=== PATIENT | female | born 1995 | race Caucasian/White ===

== ENCOUNTER 2016-07-22 08:42 | Emergency (ER) | payer OTHER ==
[~2016-07-22] VITALS: Ht 154.9 cm; Wt 86.2 kg
[~2016-07-22 08:42] MED LIST: ALBUTEROL0.09 MG/A2 IH; AMOXICILLIN500 M1 PO; AMOXICILLIN500 MG PO; AUGMENTIN 875875 MG PO; CLARITIN10 MG PO; IBU-8800 MG PO; LEVOTHYROXIN0.025 MG PO; LOMOTIL 0.025 M1 TA1 PO; MOTRIN800 MG PO; NKHM; PRENATAL1 TA1 PO; ROBITUSSIN CF240 ML PO; ZITHROMAX Z PA250 MG PO; ZOFRAN ODT4 MG SL
[2016-07-22 09:02] VITALS: BP 150/78
[2016-07-22] MEDS ORDERED: AUGMENTIN 875-875 MG PO (09:59)
[2016-07-22] MEDS ORDERED: PREDNISONE20 M1 PO (09:59)
== END 2016-07-22 10:07 | disposition home or self-care (01) ==
LOC: ED 08:42
DX: J02.9 Acute pharyngitis, unspecified (principal); F17.200 Nicotine dependence, unspecified, uncomplicated

== ENCOUNTER 2016-09-16 07:27 | Emergency (ER) | payer OTHER ==
[~2016-09-16] VITALS: Ht 154.9 cm; Wt 79.4 kg
[~2016-09-16 07:27] MED LIST changes: +AUGMENTIN 875-875 MG PO; +PREDNISONE20 M1 PO
[2016-09-16 07:43] VITALS: BP 166/74
== END 2016-09-16 07:56 | disposition home or self-care (01) ==
LOC: ED 07:27
DX: M54.5 Low back pain (principal)

== ENCOUNTER 2017-03-21 22:19 | Emergency (ER) | payer OTHER ==
[~2017-03-21] VITALS: Ht 157.4 cm; Wt 99.8 kg
[2017-03-21 22:25] VITALS: BP 138/82
[2017-03-21] MEDS ORDERED: LEVOTHYROXINE50 MCG PO (22:33)
[2017-03-21] MEDS ORDERED: AMOXICILLIN500 M2 PO (22:52)
[2017-03-21] MEDS ORDERED: ROBITUSSIN DM 105 ML PO (22:52)
== END 2017-03-21 22:56 | disposition home or self-care (01) ==
LOC: ED 22:19
DX: H10.9 Unspecified conjunctivitis (principal); J06.9 Acute upper respiratory infection, unspecified; R05 Cough; R68.89 Other general symptoms and signs; F17.200 Nicotine dependence, unspecified, uncomplicated; Z79.899 Other long term (current) drug therapy

== ENCOUNTER 2018-09-02 21:11 | Emergency (ER) | payer OTHER ==
[~2018-09-02] VITALS: Wt 93.0 kg
[~2018-09-02 21:11] MED LIST changes: +AMOXICILLIN500 M2 PO; +CLEOCIN HCL300 MG PO; +LEVOTHYROXINE50 MCG PO; +Motrin,Rufen800 MG PO; +ROBITUSSIN DM 105 ML PO; +SYNTHROID25 MCG PO; +VITAMIN D-32000 UNIT PO
[2018-09-02 21:15] VITALS: BP 128/85
[2018-09-02] MEDS ORDERED: ANAPROX DS550 MG PO (21:53)
[2018-09-02] MEDS ORDERED: CLINDAMYCIN HC300 MG PO (21:53)
== END 2018-09-03 01:49 | disposition home or self-care (01) ==
LOC: ED 21:11
DX: K08.89 Other specified disorders of teeth and supporting structures (principal); F17.200 Nicotine dependence, unspecified, uncomplicated; Z79.2 Long term (current) use of antibiotics; Z79.899 Other long term (current) drug therapy

== ENCOUNTER 2019-01-11 20:35 | Emergency (ER) | payer OTHER ==
[~2019-01-11] VITALS: Ht 154.9 cm; Wt 81.6 kg
[~2019-01-11 20:35] MED LIST changes: +ANAPROX DS550 MG PO; +CLINDAMYCIN HC300 MG PO
[2019-01-11 20:37] VITALS: BP 135/72
[2019-01-11] MEDS ORDERED: AUGMENTIN 875875 MG PO (21:05)
[2019-01-11] MEDS ORDERED: ANAPROX DS550 MG PO (21:05)
== END 2019-01-11 21:11 | disposition home or self-care (01) ==
LOC: ED 20:35
DX: K04.7 Periapical abscess without sinus (principal); F17.200 Nicotine dependence, unspecified, uncomplicated; Z79.2 Long term (current) use of antibiotics; Z79.899 Other long term (current) drug therapy

== ENCOUNTER 2020-04-23 05:14 | Inpatient (IN) | payer OTHER ==
[~2020-04-23] VITALS: Ht 157.5 cm; Wt 106.6 kg
[2020-04-23 05:23] VITALS: BP 144/65
[2020-04-23 06:02] LABS: BASO # 0.1 10*3/uL (0.0-0.1); BASO % 0.5 % (0.0-1.0); EOS # 0.2 10*3/uL (0.0-0.4); EOS % 1.6 % (1.0-4.0); HEMATOCRIT 42.2 % (37.0-47.0); LYMPH # 4.3 10*3/uL (1.3-4.4); LYMPH % 30.1 % (27.0-41.0); MEAN CORPUSCULAR HGB 28.9 pg (27.0-31.0); MEAN CORPUSCULAR HGB CONC 32.5 g/dl (33.0-37.0); MEAN PLATELET VOLUME 9.9 fl (9.6-12.3); MONO % 6.7 % (3.0-9.0); NEUT # 8.5 10*3/uL (2.3-7.9); NEUT % 59.9 % (47.0-73.0); PLATELET COUNT AUTOMATED 429 10*3/uL (130-400); RED BLOOD COUNT 4.74 10*6/uL (4.10-5.10); RED CELL DISTRI WIDTH 13.8 % (0-14.5); WHITE BLOOD COUNT 14.1 10*3/uL (4.8-10.8)
[2020-04-23 06:03] LABS: ALBUMIN 3.5 gm/dl (3.1-4.5); ALKALINE PHOSPHATASE 88 U/L (45-117); BUN 17 mg/dl (7-24); CHLORIDE 112 mmol/L (98-107); CREATININE 0.82 mg/dL (0.55-1.02); POTASSIUM 4.2 mmol/L (3.5-5.1); SGOT/AST 20 IU/L (3-35); SGPT/ALT 46 U/L (12-78); SODIUM 137 mmol/L (136-145); TOTAL PROTEIN 7.5 gm/dL (6.4-8.2)
[2020-04-23 12:02] VITALS: BP 130/70
[2020-04-23 13:15] VITALS: BP 139/84
[2020-04-23] MEDS ORDERED: DAILY VITE1 EACH PO (13:45)
[2020-04-23 16:00] VITALS: BP 124/53
[2020-04-23 20:00] VITALS: BP 134/73
[2020-04-24] VITALS (10 sets, daily range): BP systolic 120–167; BP diastolic 58–88
[2020-04-24 06:47] LABS: BASO # 0.1 10*3/uL (0.0-0.1); BASO % 0.5 % (0.0-1.0); EOS # 0.2 10*3/uL (0.0-0.4); EOS % 2.4 % (1.0-4.0); HEMATOCRIT 41.1 % (37.0-47.0); LYMPH % 41.5 % (27.0-41.0); MEAN CELL VOLUME 90.3 fl (81.0-99.0); MEAN CORPUSCULAR HGB 28.8 pg (27.0-31.0); MEAN CORPUSCULAR HGB CONC 31.9 g/dl (33.0-37.0); MEAN PLATELET VOLUME 9.9 fl (9.6-12.3); MONO # 0.8 10*3/uL (0.1-1.0); MONO % 8.3 % (3.0-9.0); NEUT # 4.5 10*3/uL (2.3-7.9); NEUT % 46.9 % (47.0-73.0); PLATELET COUNT AUTOMATED 358 10*3/uL (130-400); RED BLOOD COUNT 4.55 10*6/uL (4.10-5.10); RED CELL DISTRI WIDTH 14.2 % (0-14.5); WHITE BLOOD COUNT 9.6 10*3/uL (4.8-10.8)
[2020-04-24 06:56] LABS: ALKALINE PHOSPHATASE 68 U/L (45-117); BUN 15 mg/dl (7-24); CHLORIDE 113 mmol/L (98-107); CHOLESTEROL 131 mg/dL (<200); CREATININE 0.78 mg/dL (0.55-1.02); FREE T4 0.89 ng/dl (0.76-1.46); HDL CHOLESTEROL 31 mg/dl (40-60); LDL CHOLESTEROL 65 mg/dL (9-159); POTASSIUM 4.1 mmol/L (3.5-5.1); SGOT/AST 17 IU/L (3-35); SGPT/ALT 40 U/L (12-78); SODIUM 141 mmol/L (136-145); TOTAL PROTEIN 6.4 gm/dL (6.4-8.2); TRIGLYCERIDES 175 mg/dl (<150); VLDL CHOLESTEROL 35 mg/dL (6-40)
[2020-04-25] VITALS: BP 135/60
[2020-04-25 06:47] LABS: BASO % 0.2 % (0.0-1.0); HEMATOCRIT 40.4 % (37.0-47.0); LYMPH # 1.9 10*3/uL (1.3-4.4); LYMPH % 13.6 % (27.0-41.0); MEAN CELL VOLUME 87.6 fl (81.0-99.0); MEAN CORPUSCULAR HGB 28.4 pg (27.0-31.0); MEAN CORPUSCULAR HGB CONC 32.4 g/dl (33.0-37.0); MEAN PLATELET VOLUME 10.1 fl (9.6-12.3); MONO % 7.1 % (3.0-9.0); NEUT % 78.6 % (47.0-73.0); PLATELET COUNT AUTOMATED 425 10*3/uL (130-400); RED BLOOD COUNT 4.61 10*6/uL (4.10-5.10); RED CELL DISTRI WIDTH 13.5 % (0-14.5); WHITE BLOOD COUNT 13.9 10*3/uL (4.8-10.8)
[2020-04-25 07:14] LABS: BUN 10 mg/dl (7-24); CHLORIDE 109 mmol/L (98-107); SODIUM 139 mmol/L (136-145)
[2020-04-25 07:15] LABS: CREATININE 0.74 mg/dL (0.55-1.02)
[2020-04-25 08:00] VITALS: BP 136/89
[2020-04-25] MEDS ORDERED: COLACE100 MG PO (09:44)
[2020-04-25] MEDS ORDERED: ZOFRAN4 MG PO (09:44)
[2020-04-25] MEDS ORDERED: HYDROCODONE-AC1 EAC1 PO (09:53)
[2020-04-25] MEDS ORDERED: VITAMIN D350 MC2 PO (09:54)
== END 2020-04-25 10:44 | disposition home or self-care (01) | DRG 263 ==
LOC: ED 05:14 → 5E 10:46 → EDHOLD 10:46 → 5E 12:50
PROVIDERS: Family Medicine; Internal Medicine; ADMIT Internal Medicine; ATTEND Internal Medicine
PROC: 0FT44ZZ Resection of Gallbladder, Percutaneous Endoscopic Approach (ICD-10-PCS; principal; 2020-04-24)
DX: K80.00 Calculus of gallbladder with acute cholecystitis without obstruction (principal); R73.9 Hyperglycemia, unspecified; D47.3 Essential (hemorrhagic) thrombocythemia; F12.90 Cannabis use, unspecified, uncomplicated; E66.01 Morbid (severe) obesity due to excess calories; E87.8 Other disorders of electrolyte and fluid balance, not elsewhere classified; E03.9 Hypothyroidism, unspecified; D27.0 Benign neoplasm of right ovary; F17.210 Nicotine dependence, cigarettes, uncomplicated; Z82.5 Family history of asthma and other chronic lower respiratory diseases; Z82.49 Family history of ischemic heart disease and other diseases of the circulatory system; Z83.3 Family history of diabetes mellitus; Z98.891 History of uterine scar from previous surgery; Z68.41 Body mass index [BMI] 40.0-44.9, adult; Z79.899 Other long term (current) drug therapy; Z71.6 Tobacco abuse counseling

== ENCOUNTER 2020-11-15 23:39 | Emergency (ER) | payer OTHER ==
[~2020-11-15 23:39] MED LIST changes: +COLACE100 MG PO; +DAILY VITE1 EACH PO; +HYDROCODONE-AC1 EAC1 PO; +VITAMIN D350 MC2 PO; +ZOFRAN4 MG PO
[2020-11-15 23:51] VITALS: BP 110/50
[2020-11-16] MEDS ORDERED: AMOXICILLIN500 M2 PO (01:07)
== END 2020-11-16 01:14 | disposition home or self-care (01) ==
LOC: ED 23:39
DX: K04.7 Periapical abscess without sinus (principal); E03.9 Hypothyroidism, unspecified; F17.200 Nicotine dependence, unspecified, uncomplicated; Z79.899 Other long term (current) drug therapy

== ENCOUNTER 2020-12-01 19:22 | Emergency (ER) | payer OTHER ==
[~2020-12-01] VITALS: Ht 157.4 cm; Wt 106.6 kg
[2020-12-01 20:20] VITALS: BP 123/67
== END 2020-12-01 21:36 | disposition home or self-care (01) ==
LOC: ED 19:22
DX: J02.9 Acute pharyngitis, unspecified (principal); Z20.822 Contact with and (suspected) exposure to COVID-19; R05 Cough; F17.200 Nicotine dependence, unspecified, uncomplicated; Z79.899 Other long term (current) drug therapy

== ENCOUNTER 2021-06-11 10:52 | Emergency (ER) | payer OTHER ==
[~2021-06-11] VITALS: Ht 157.4 cm; Wt 102.1 kg
[2021-06-11 11:52] VITALS: BP 158/71
[2021-06-11] MEDS ORDERED: IBUPROFEN600 MG PO (12:15)
[2021-06-11] MEDS ORDERED: AUGMENTIN 875-875 MG PO (12:15)
== END 2021-06-11 12:22 | disposition home or self-care (01) ==
LOC: ED 10:52
DX: K08.89 Other specified disorders of teeth and supporting structures (principal); Z90.49 Acquired absence of other specified parts of digestive tract; Z98.890 Other specified postprocedural states; Z87.891 Personal history of nicotine dependence

== ENCOUNTER 2021-12-11 20:09 | Emergency (ER) | payer OTHER ==
[~2021-12-11] VITALS: Ht 157.4 cm; Wt 108.9 kg
[~2021-12-11 20:09] MED LIST changes: +IBUPROFEN600 MG PO
[2021-12-11 20:29] VITALS: BP 149/88
[2021-12-11] MEDS ORDERED: PENICILLIN VK500 MG PO (20:35)
== END 2021-12-11 20:50 | disposition home or self-care (01) ==
LOC: ED 20:09
DX: K02.9 Dental caries, unspecified (principal)

== ENCOUNTER 2022-02-22 21:23 | Emergency (ER) | payer OTHER ==
[~2022-02-22] VITALS: Ht 157.4 cm; Wt 90.7 kg
[~2022-02-22 21:23] MED LIST changes: +PENICILLIN VK500 MG PO
[2022-02-22 22:32] LABS: BASO % 0.6 % (0.0-1.0); EOS # 0.1 10*3/uL (0.0-0.4); EOS % 1.4 % (1.0-4.0); HEMATOCRIT 41.1 % (37.0-47.0); LYMPH # 1.8 10*3/uL (1.3-4.4); LYMPH % 26.9 % (27.0-41.0); MEAN CELL VOLUME 91.1 fl (81.0-99.0); MEAN CORPUSCULAR HGB 30.2 pg (27.0-31.0); MEAN CORPUSCULAR HGB CONC 33.1 g/dl (33.0-37.0); MEAN PLATELET VOLUME 9.8 fl (9.6-12.3); MONO # 0.9 10*3/uL (0.1-1.0); MONO % 13.1 % (3.0-9.0); NEUT # 3.8 10*3/uL (2.3-7.9); NEUT % 57.7 % (47.0-73.0); PLATELET COUNT AUTOMATED 333 10*3/uL (130-400); RED BLOOD COUNT 4.51 10*6/uL (4.10-5.10); WHITE BLOOD COUNT 6.6 10*3/uL (4.8-10.8)
[2022-02-22 22:48] LABS: ALKALINE PHOSPHATASE 78 U/L (45-117); BUN 14 mg/dl (7-24); CHLORIDE 108 mmol/L (98-107); CREATININE 0.74 mg/dL (0.55-1.02); POTASSIUM 3.6 mmol/L (3.5-5.1); SGPT/ALT 32 U/L (12-78); SODIUM 135 mmol/L (136-145); TOTAL PROTEIN 7.1 gm/dL (6.4-8.2)
[2022-02-22 22:51] LABS: B-hCG (QUALITATIVE) NEGATIVE (NEGATIVE)
[2022-02-22] MEDS ORDERED: PREDNISONE20 M1 PO (23:24)
[2022-02-22] MEDS ORDERED: AMOX-CLAV 875-1 EACH PO (23:24)
== END 2022-02-22 23:29 | disposition home or self-care (01) ==
LOC: ED 21:23
PROVIDERS: Emergency Medicine
DX: J01.90 Acute sinusitis, unspecified (principal); Z90.49 Acquired absence of other specified parts of digestive tract; F12.90 Cannabis use, unspecified, uncomplicated; F10.90 Alcohol use, unspecified, uncomplicated; Z72.0 Tobacco use; R07.89 Other chest pain; R05.9 Cough, unspecified

== ENCOUNTER 2022-09-29 08:26 | Emergency (ER) | payer OTHER ==
[~2022-09-29] VITALS: Ht 157.4 cm; Wt 83.9 kg
[~2022-09-29 08:26] MED LIST changes: +AMOX-CLAV 875-1 EACH PO
[2022-09-29 08:40] VITALS: BP 131/66
[2022-09-29] MEDS ORDERED: POLYTRIM 1000010 M1 OPH (08:53)
== END 2022-09-29 08:57 | disposition home or self-care (01) ==
LOC: ED 08:26
DX: H10.9 Unspecified conjunctivitis (principal); J45.909 Unspecified asthma, uncomplicated; Z88.8 Allergy status to other drugs, medicaments and biological substances; Z90.49 Acquired absence of other specified parts of digestive tract; Z98.890 Other specified postprocedural states; F17.200 Nicotine dependence, unspecified, uncomplicated; F12.90 Cannabis use, unspecified, uncomplicated

== ENCOUNTER 2022-10-05 12:02 | Emergency (ER) | payer OTHER ==
[~2022-10-05] VITALS: Ht 157.4 cm; Wt 83.9 kg
[~2022-10-05 12:02] MED LIST changes: +POLYTRIM 1000010 M1 OPH
[2022-10-05 12:12] VITALS: BP 136/86
[2022-10-05] MEDS ORDERED: CILOXAN 5 ML5 ML OPH (13:28)
[2022-10-05] MEDS ORDERED: AMOX-CLAV 875-1 EACH PO (13:28)
== END 2022-10-05 13:31 | disposition home or self-care (01) ==
LOC: ED 12:02
DX: H10.89 Other conjunctivitis (principal); J45.909 Unspecified asthma, uncomplicated; Z90.49 Acquired absence of other specified parts of digestive tract; Z98.890 Other specified postprocedural states; Z72.0 Tobacco use; F12.90 Cannabis use, unspecified, uncomplicated; Z88.8 Allergy status to other drugs, medicaments and biological substances

== ENCOUNTER 2023-08-15 15:23 | Emergency (ER) | payer OTHER ==
[~2023-08-15] VITALS: Ht 154.9 cm; Wt 120.2 kg
[~2023-08-15 15:23] MED LIST changes: +CILOXAN 5 ML5 ML OPH
[2023-08-15 16:26] VITALS: BP 128/71
== END 2023-08-15 18:33 | disposition home or self-care (01) ==
LOC: ED 15:23
DX: G62.9 Polyneuropathy, unspecified (principal); J45.909 Unspecified asthma, uncomplicated; F12.90 Cannabis use, unspecified, uncomplicated; Z72.0 Tobacco use; Z90.49 Acquired absence of other specified parts of digestive tract; Z98.890 Other specified postprocedural states

== ENCOUNTER 2024-09-02 19:17 | Emergency (ER) | payer SELFPAY ==
[~2024-09-02] VITALS: Ht 157.4 cm; Wt 83.9 kg
[2024-09-02 19:34] VITALS: BP 158/85
[2024-09-02] MEDS ORDERED: PREDNISONE50 MG PO (19:46)
[2024-09-02] MEDS ORDERED: ZITHROMAX250 MG PO (19:46)
[2024-09-02] MEDS ORDERED: predniSONE 20 MG TAB PO ONE (19:50)
[2024-09-02] MEDS ORDERED: AZITHROMYCIN 250 MG TAB PO ONE (19:50)
== END 2024-09-02 19:55 | disposition home or self-care (01) ==
LOC: ED 19:17
DX: H66.92 Otitis media, unspecified, left ear (principal); J02.9 Acute pharyngitis, unspecified; H53.8 Other visual disturbances; Z79.899 Other long term (current) drug therapy; Z90.49 Acquired absence of other specified parts of digestive tract; Z98.890 Other specified postprocedural states; Z96.22 Myringotomy tube(s) status; Z87.891 Personal history of nicotine dependence